=== PATIENT | male | born 1945 | race Hispanic/Latino ===

== ENCOUNTER 2016-11-28 07:36 | Emergency (ER) | payer BC, MEDICARE ==
[2016-11-28 07:37] VITALS: BMI 20.2
[2016-11-28 07:47] VITALS: TEMP 97.8
--- NOTE | 2016-11-28 08:09 | ED PDOC ---
Arrival/HPI - General Historian: Patient - History of Present Illness Symptom Onset: Gradual Symptom Course: Worsening Quality: Pressure Activities at Onset: Rest <[place] - Last Filed: 11/28/16 10:10> <Nelsy Iraheta - Last Filed: 11/28/16 12:10> - General Chief Complaint: Male Genitourinary Time Seen by Provider: 11/28/16 07:46 - History of Present Illness Narrative History of Present Illness (Text): 11/28/16 08:03 71 M with PMHx of hepatic hemangioma, asthma, HLD, and BPH presented to [facility] ED with complaints of unable to urinate. Pt last urinated at approx 12-1am at which time he was able to "dribble" a couple of drops and upon further straining to urinate began to defecate instead. Pt states this is the first time this has happened. Pt notes a constant urge to urinate with associated intense abdominal pressure. Pt notes that he is unable to sit on account of the distended bladder and the intense pressure he feels. Pt takes flomax for his hx of BPH and notes that he takes it "religiously". He denied fever, chills, sob, chest pains, palpitations, n/v/d/c. PMHx: hepatic hemangioma, asthma, HLD, BPH PSHx: colonoscopy, prostate, hernia repairx2 SHx: Lives in [place] with , (+)tobacco 1ppd, Denies etoh or drugs Allergies: Tetanus vaccine and toxoid Meds: flowmax, symbicort, statin, review NOV PMD: Dr Watt Urologist: Dr. Coronado 11/28/16 08:34 ([place]) Past Medical History - Infectious Disease Hx of Infectious Diseases: None - Cardiac Hx Pacemaker: No - Neurological Hx Paralysis: No - Renal Other/Comment: Enlarge prostrate - Hematological/Oncological Hx Blood Transfusions: No Hx Blood Transfusion Reaction: No - Musculoskeletal/Rheumatological Hx Musculoskeletal Disorders: No - Psychiatric Hx Emotional Abuse: No Hx Physical Abuse: No Hx Substance Use: No - Anesthesia Hx Anesthesia Reactions: No Hx Malignant Hyperthermia: No - Suicidal Assessment Feels Threatened In Home Enviroment: No <[place] - Last Filed: 11/28/16 10:10> Family/Social History Family/Social History: No Known Family HX Smoking Status: Heavy Smoker > 10 Cigarettes Daily Hx Alcohol Use: No Hx Substance Use: No <[place] - Last Filed: 11/28/16 10:10> Allergies/Home Meds <[place] - Last Filed: 11/28/16 10:10> <Nelsy Iraheta - Last Filed: 11/28/16 12:10> Allergies/Adverse Reactions: Allergies Tetanus Vaccines and Toxoid [Tetanus Vaccines & Toxoid] Adverse Reaction ( Intermediate, Verified 11/28/16 07:47) SWELLING Home Medications: Home Meds Medication Instructions Recorded Confirmed Budesonide/Formoterol Fumarate 1 aer IH BID 06/12/14 11/28/16 [Symbicort] Tamsulosin [Flomax] 0.4 mg PO HS 06/12/14 11/28/16 Review of Systems - Review of Systems Constitutional: Normal Eyes: Normal ENT: Normal Respiratory: Normal Cardiovascular: Normal Gastrointestinal: Normal Genitourinary Male: Urinary Output Changes Musculoskeletal: Normal Skin: Normal Neurological: Normal Endocrine: Normal Hemo/Lymphatic: Normal Psychiatric: Normal <[place] - Last Filed: 11/28/16 10:10> Physical Exam Vital Signs Reviewed: Yes Temperature: Afebrile Blood Pressure: Normal Pulse: Regular Respiratory Rate: Normal Appearance: Positive for: Well-Appearing, Non-Toxic, Comfortable Pain Distress: None Mental Status: Positive for: Alert and Oriented X 3 - Systems Exam Head: Present: Atraumatic, Normocephalic Pupils: Present: PERRL Extroacular Muscles: Present: EOMI Conjunctiva: Present: Normal Mouth: Present: Moist Mucous Membranes Neck: Present: Normal Range of Motion Respiratory/Chest: Present: Clear to Auscultation, Good Air Exchange. No: Respiratory Distress, Accessory Muscle Use Cardiovascular: Present: Regular Rate and Rhythm, Normal S1, S2. No: Murmurs Abdomen: Present: Tenderness, Distention, Normal Bowel Sounds Genitourinary Male: Present: Normal External Genitalia Upper Extremity: Present: Normal Inspection. No: Cyanosis, Edema Lower Extremity: Present: Normal Inspection. No: Edema Neurological: Present: GCS=15, CN II-XII Intact, Speech Normal Skin: Present: Warm, Dry, Normal Color. No: Rashes Psychiatric: Present: Alert, Oriented x 3, Normal Insight, Normal Concentration <[place] - Last Filed: 11/28/16 10:10> Vital Signs Temp Pulse Resp BP Pulse Ox 11/28/16 09:56 65 16 127/65 100 11/28/16 07:41 97.8 F 85 18 169/92 H 96 Medical Decision Making Re-evaluation Time: 08:35 Reassessment Condition: Improved <[place] - Last Filed: 11/28/16 10:10> <Nelsy Iraheta - Last Filed: 11/28/16 12:10> ED Course and Treatment: 11/28/16 08:11 71 M with PMHx of BPH presented to [facility] ED with complaints of urinary retention likely 2/2 BPH -- CBC -- CMP -- UA -- UCx -- Mendes insertion 11/28/16 08:36 UA negative for UTI ([place]) 11/28/16 08:22 Patient seen by the resident and then seen by me. Patient presented with urinary retention x 7 hours. He has hx of BPH and is compliant with flomax. He reported inability to urinate and abdominal discomfort. I was unable to pass mendes catheter but inserted 16 coude with return of 400cc of urine. Urine was initially blood tinged but cleared. Patient reported immediate relief from his abdominal discomfort. UA sent for ua and ucx and basic labs ordered. 11/28/16 08:32 UA shows blood (expected due to 2 attempts at catheter placement) but negative for bacteria, leukocytes or nitrates. Ucx sent. 11/28/16 09:55 CBC and CMP WNL. Leg bag placed. Paged Dr. Coronado but patient reports he does not want to stay until call back. He reports that he will call Dr. Coronado when he gets home. 11/28/16 12:[address] Coronado who is aware of labs results and patient's presentation and will follow-up with patient in his office. (Nelsy Iraheta) - Lab Interpretations Lab Results: 11/28/16 09:10 11/28/16 09:10 Lab Results 11/28/16 09:10: WBC 6.4, RBC 4.78, Hgb 14.7, Hct 42.7, MCV 89.3, MCH 30.8, MCHC 34.4, RDW 14.3, Plt Count 229, MPV 10.2, Gran % 78.9 H, Lymph % (Auto) 14.1 L, [place] % (Auto) 6.6 H, Eos % (Auto) 0.2 L, Baso % (Auto) 0.2, Gran # 5.04, Lymph # 0.9 L, [place] # 0.4, Eos # 0.0, Baso # 0.01, Sodium 139, Potassium 3.9, Chloride 105, Carbon Dioxide 24, Anion Gap 14, BUN 11, Creatinine 0.8, Est GFR ( Amer) > 60, Est GFR (Non-Af Amer) > 60, Random Glucose 108, Calcium 9.1 , Total Bilirubin 0.6, AST 20, ALT 16, Alkaline Phosphatase 65, Total Protein 6.5, Albumin 3.6, Globulin 2.9, Albumin/Globulin Ratio 1.3 11/28/16 08:10: Urine Color Yellow, Urine Appearance Sl cloudy, Urine pH 6.5, Ur Specific [place] 1.015, Urine Protein Negative, Urine Glucose (UA) Negative, Urine Ketones Negative, Urine Blood Large H, Urine Nitrate Negative, Urine Bilirubin Negative, Urine Urobilinogen 1.0 H, Ur Leukocyte Esterase Negative, Urine RBC 15 - 20, Urine WBC Negative, Urine Bacteria Ham Facer Disposition/Present on Arrival - Present on Arrival Any Indicators Present on Arrival: No History of DVT/PE: No History of Uncontrolled Diabetes: No Urinary Catheter: No History of Decub. Ulcer: No History Surgical Site Infection Following: None - Disposition Have Diagnosis and Disposition been Completed?: Yes Disposition Time: 08:00 <[place] - Last Filed: 11/28/16 10:10> - Present on Arrival Any Indicators Present on Arrival: No - Disposition Have Diagnosis and Disposition been Completed?: Yes Disposition Time: 08:32 Patient Plan: Discharge <Nelsy Iraheta - Last Filed: 11/28/16 12:10> - Disposition Diagnosis: Urine retention Disposition: HOME/ ROUTINE Condition: GOOD Additional Instructions: Continue to take your flomax. Follow-up with Dr. Coronado within 2 days. Keep mendes in place. Return to ED if condition worsens. Referrals: Jan Watt MD [Primary Care Provider] - Follow up with primary Deuce Coronado MD [Staff Provider] - Follow up with primary
[2016-11-28 08:22] LABS: PH,URINE 6.5 (4.7-8.0); URINE BILIRUBIN NEGATIVE (NEGATIVE); URINE BLOOD LARGE (NEGATIVE); URINE GLUCOSE (UA) NEGATIVE (NEGATIVE); URINE KETONE NEGATIVE (NEGATIVE); URINE LEUKOCYTE ESTERASE NEGATIVE Leu/uL (NEGATIVE); URINE PROTEIN NEGATIVE mg/dL (<30 mg/dL)
[2016-11-28 08:26] LABS: URINE APPEARANCE SL CLOUDY (CLEAR); URINE COLOR YELLOW (YELLOW)
[2016-11-28 08:27] LABS: URINE RBC 15 - 20 /hpf (0-2); URINE WBC NEGATIVE /hpf (0-6)
[2016-11-28 09:22] LABS: ADD MANUAL DIFF? NO
[2016-11-28 09:28] LABS: BASO # 0.01 K/mm3 (0.0-2.0); BASO % 0.2 % (0.0-3.0); EOS % 0.2 % (1.5-5.0); GRAN # 5.04 (1.4-6.5); GRAN % 78.9 % (50.0-68.0); HEMATOCRIT 42.7 % (42.0-52.0); LYMPH # 0.9 (1.2-3.4); LYMPH % 14.1 % (22.0-35.0); MEAN CELL VOLUME 89.3 fL (80.0-105.0); MEAN CORPUSCULAR HEMOGLOBIN 30.8 pg (25.0-35.0); MEAN CORPUSCULAR HGB CONC 34.4 g/dl (31.0-37.0); MEAN PLATELET VOLUME 10.2 fl (7.0-11.0); MONO # 0.4 (0.1-0.6); MONO % 6.6 % (1.0-6.0); PLATELET COUNT 229 10^3/uL (120.0-450.0); RED CELL DISTRIBUTION WIDTH 14.3 % (11.5-14.5); WHITE BLOOD COUNT 6.4 10^3/ul (4.5-11.0)
[2016-11-28 09:42] LABS: ALB/GLOB RATIO 1.3 (1.1-1.8); ALKALINE PHOSPHATASE 65 U/L (38-133); ALT/SGPT 16 U/L (7-56); AST/SGOT 20 U/L (15-59); BILIRUBIN,TOTAL 0.6 mg/dL (0.2-1.3); BLOOD UREA NITROGEN 11 mg/dL (7-21); CALCIUM 9.1 mg/dL (8.4-10.5); CARBON DIOXIDE 24 mmol/L (21-33); CHLORIDE 105 mmol/L (95-110); GFR AFRICAN-AMERICAN > 60; GLUCOSE,RANDOM 108 mg/dL (70-110); POTASSIUM 3.9 mmol/L (3.6-5.0); SODIUM 139 mmol/L (132-148); TOTAL PROTEIN 6.5 g/dL (5.8-8.3)
[2016-11-28 10:15] VITALS: BP 127/65; PULSE 65; RESP 16; O2SAT 100
== END 2016-11-28 10:29 | disposition home or self-care (01) ==
LOC: ED 07:36
DX: R33.9 Retention of urine, unspecified (principal); N40.0 Benign prostatic hyperplasia without lower urinary tract symptoms; E78.5 Hyperlipidemia, unspecified; F17.210 Nicotine dependence, cigarettes, uncomplicated